=== PATIENT | male | born 1960 | race Caucasian/White ===

== ENCOUNTER 2018-12-03 22:50 | Observation (INO) ==
[2018-12-03 23:16] LABS: Basophils # 0.1 10*3/uL (0.0-0.2); Eosinophils # 0.2 10*3/uL (0.0-0.87); Eosinophils % 2.4 % (0.00-10.9); Hematocrit 46.9 VOL% (42.0-52.0); Hemoglobin 16.4 GM/DL (14.0-18.0); Immature Granulocytes % 0.5 %; Immature Granulocytes Absolute 0.04 #; Lymphocytes # 2.4 10*3/uL (1.4-4.0); Lymphocytes % 28.8 % (21.2-54.2); Mean Corpuscular Volume 86.1 FL (87-102); Mean Platelet Volume 10.8 FL (9.6-12.0); Monocytes % 6.9 % (1.7-12.7); Neutrophils % 60.4 % (38.7-73.9); Platelet Count 250 T/CUMM (130-400); Red Blood Count 5.45 MC/CUMM (3.8-5.5); White Blood Count 8.4 T/CUMM (4-12)
[2018-12-04 00:07] LABS: Glucose 366 MG/DL (74-106)
[2018-12-04] MEDS ORDERED: ORPHENADRINE 60 MG/2 ML VIAL IV STA (00:33)
[2018-12-04] MEDS ORDERED: ASPIRIN 325 MG TABLET PO STA (00:33)
[2018-12-04] MEDS ORDERED: KETOROLAC 30 MG/1 ML VIAL IV STA (00:33)
[2018-12-04] MEDS ORDERED: ONDANSETRON 4 MG/2 ML VIAL IV STA (00:33)
[2018-12-04] MEDS ORDERED: NITROGLYCERIN 2% OINT 1 INCH/GM PACK TOP STA (00:50)
[2018-12-04] MEDS ORDERED: ONDANSETRON 4 MG/2 ML VIAL IV PRN (00:58)
[2018-12-04] MEDS ORDERED: DEXTROSE 50% 25 GM/50 ML VIAL IV PRN (00:58)
[2018-12-04] MEDS ORDERED: GLUCAGON 1 MG VIAL IM PRN (00:58)
[2018-12-04] MEDS ORDERED: ACETAMINOPHEN 500 MG TABLET PO PRN (00:58)
[2018-12-04 01:38] LABS: PT Patient Result > 200.0 SECS
[2018-12-04 01:39] LABS: INR > 20.0
[2018-12-04 01:48] LABS: Calcium 7.6 MG/DL (8.5-10.1)
[2018-12-04 01:50] LABS: Troponin I 0.625 NG/ML (0.00-0.045)
[2018-12-04 03:04] LABS: Apearance,Urine CLEAR (Clear); Bilirubin,Urine Negative (Negative); Blood, Urine Negative (Negative); Glucose,Urine (UA) >=500 mg/dL (Negative); Ketones,Urine Negative (Negative); Nitrite,Urine Negative (Negative); Protein,Urine Negative; RBC,Urine 3 /HPF (0-4); Urine Color Yellow (Yellow); Urine Specific Gravity 1.029 (1.001-1.035); Urine Urobilinogen < 2.0 EU/DL (0.2-1.0)
[2018-12-04 03:26] LABS: Barbiturates Screen,Urine Negative (Negative); Benzodiazepines Screen,Urine Negative (Negative); Cannabinoid Screen,Urine Negative (Negative); Opiate Screen,Urine Negative (Negative); Phencyclidine Screen,Urine Negative (Negative)
[2018-12-04] MEDS: NITROGLYCERIN 2% OINT 1 INCH/GM PACK TOP SCH ×3 (06:38→17:02)
[2018-12-04] MEDS: INSULIN REGULAR 100 UNIT/ML SUBCUT SCH ×4 (06:38→22:18)
[2018-12-04] MEDS ORDERED: metFORMIN 500 MG TABLET PO SCH (08:00)
[2018-12-04] MEDS: PANTOPRAZOLE 40 MG TABLET PO SCH (08:26)
[2018-12-04] MEDS: METOPROLOL TARTRATE 25 MG TABLET PO SCH ×2 (08:28→21:55)
[2018-12-04] MEDS ORDERED: traMADol 50 MG TABLET PO PRN (09:15)
[2018-12-04] MEDS ORDERED: ALUMINUM/MAGNES/SIMETH MAX STR 30 ML UDCUP PO PRN (09:18)
[2018-12-04 09:45] LABS: INR 0.9
[2018-12-04] MEDS: INSULIN GLARGINE 100 UNIT/ML SUBCUT SCH (10:05)
[2018-12-04 10:09] LABS: Alkaline Phosphatase 167 U/L (45-117); Calcium 7.1 MG/DL (8.5-10.1); Glucose 316 MG/DL (74-106); HDL Cholesterol 16 MG/DL (40-60); Risk Ratio 9.13; Triglycerides 1127 MG/DL (2-150); VLDL CHOLESTEROL 225.4 MG/DL
[2018-12-04 10:12] LABS: Troponin I 0.823 NG/ML (0.00-0.045)
[2018-12-04 10:24] LABS: Blood Urea Nitrogen 12 MG/DL (7-18)
[2018-12-04 10:25] LABS: Osmolality,Calculated 284.8 MOS/KG (273-304)
[2018-12-04 10:29] LABS: INR 0.9
[2018-12-04 10:30] LABS: Alanine Aminotransferase 73 U/L (16-61); Aspartate Amino Transferase 40 U/L (0-37)
[2018-12-04 10:36] LABS: PT Patient Result 10.3 SECS
[2018-12-04 10:37] LABS: PT Patient Result 10.3 SECS
[2018-12-04] MEDS: ALBUTEROL/IPRATROPIUM 3 ML NEB RESP TX SCH ×2 (13:17→19:18)
[2018-12-04] MEDS ORDERED: ENOXAPARIN 100 MG/ML SYRINGE SUBCUT ONE (18:13)
[2018-12-04] MEDS ORDERED: POTASSIUM CHLORIDE RIDER 10 MEQ in PREMIX 1 EACH IV PRN (18:20)
[2018-12-04] MEDS ORDERED: MAGNESIUM SULF RIDER 2 GM in PREMIX 1 EACH IV PRN (18:20)
[2018-12-04] MEDS: ATORVASTATIN 40 MG TABLET PO SCH (21:49)
[2018-12-05] MEDS: ALBUTEROL/IPRATROPIUM 3 ML NEB RESP TX SCH ×4 (01:08→19:41)
[2018-12-05] MEDS: NITROGLYCERIN 2% OINT 1 INCH/GM PACK TOP SCH ×5 (01:47→23:13)
[2018-12-05 03:39] LABS: Basophils # 0.1 10*3/uL (0.0-0.2); Eosinophils # 0.1 10*3/uL (0.0-0.87); Eosinophils % 1.6 % (0.00-10.9); Hematocrit 42.6 VOL% (42.0-52.0); Hemoglobin 14.2 GM/DL (14.0-18.0); Immature Granulocytes % 0.4 %; Immature Granulocytes Absolute 0.03 #; Lymphocytes # 1.7 10*3/uL (1.4-4.0); Lymphocytes % 23.3 % (21.2-54.2); Mean Corpuscular HGB Conc 33.3 GM/DL (32-36); Mean Corpuscular Volume 86.9 FL (87-102); Mean Platelet Volume 11.1 FL (9.6-12.0); Monocytes % 5.7 % (1.7-12.7); Platelet Count 185 T/CUMM (130-400); Red Cell Distribution Width 13.1 % (9.3-17.3); White Blood Count 7.4 T/CUMM (4-12)
[2018-12-05 03:44] LABS: INR 0.9; PT Patient Result 10.3 SECS
[2018-12-05 04:04] LABS: Blood Urea Nitrogen 18 MG/DL (7-18); Calcium 7.4 MG/DL (8.5-10.1); Glucose 348 MG/DL (74-106); Osmolality,Calculated 288.8 MOS/KG (273-304)
[2018-12-05 04:05] LABS: Troponin I 0.506 NG/ML (0.00-0.045)
[2018-12-05] MEDS ORDERED: diphenhydrAMINE CAP 25 MG CAPSULE PO ONE (06:30)
[2018-12-05] MEDS ORDERED: DIAZEPAM 5 MG TABLET PO ONE (06:30)
[2018-12-05] MEDS: METOPROLOL TARTRATE 25 MG TABLET PO SCH (08:27)
[2018-12-05] MEDS: ASPIRIN CHEW 81 MG TABLET PO SCH (08:27)
[2018-12-05] MEDS: PANTOPRAZOLE 40 MG TABLET PO SCH (08:27)
[2018-12-05] MEDS ORDERED: HYDROmorphone 2 MG/1 ML VIAL ONE (09:55)
[2018-12-05] MEDS ORDERED: MIDAZOLAM 2 MG/2 ML VIAL ONE (09:55)
[2018-12-05] MEDS ORDERED: VERAPAMIL 5 MG/2 ML VIAL ONE (09:56)
[2018-12-05] MEDS ORDERED: LIDOCAINE 1% 20 ML VIAL ONE (09:56)
[2018-12-05] MEDS ORDERED: NITROGLYCERIN DRIP 50 MG/250 ML BOTTLE IV ONE (09:56)
[2018-12-05] MEDS ORDERED: ENOXAPARIN 60 MG/0.6 ML SYRINGE ONE (10:16)
[2018-12-05] MEDS ORDERED: ENOXAPARIN 30 MG/0.3 ML SYRINGE ONE (10:24)
[2018-12-05] MEDS ORDERED: TIROFIBAN 5,000 MCG/100 ML PREMIX IV ONE (10:27)
[2018-12-05] MEDS: INSULIN REGULAR 100 UNIT/ML SUBCUT SCH ×4 (11:08→21:02)
[2018-12-05] MEDS ORDERED: TICAGRELOR 90 MG TABLET ONE (11:14)
[2018-12-05] MEDS ORDERED: ACETAMINOPHEN 325 MG TABLET PO PRN (11:18)
[2018-12-05] MEDS: INSULIN GLARGINE 100 UNIT/ML SUBCUT SCH (12:18)
[2018-12-05 13:38] LABS: Troponin I 0.956 NG/ML (0.00-0.045)
[2018-12-05] MEDS: TICAGRELOR 90 MG TABLET PO SCH (21:02)
[2018-12-05] MEDS: ATORVASTATIN 40 MG TABLET PO SCH (21:02)
[2018-12-05] MEDS: CARVEDILOL 3.125 MG TABLET PO SCH (21:02)
[2018-12-06] MEDS: ALBUTEROL/IPRATROPIUM 3 ML NEB RESP TX SCH ×3 (00:12→12:22)
[2018-12-06 05:12] LABS: Basophils # 0.1 10*3/uL (0.0-0.2); Basophils % 0.7 % (0.0-0.8); Eosinophils # 0.2 10*3/uL (0.0-0.87); Eosinophils % 1.7 % (0.00-10.9); Hematocrit 46.2 VOL% (42.0-52.0); Hemoglobin 15.1 GM/DL (14.0-18.0); Immature Granulocytes % 0.6 %; Immature Granulocytes Absolute 0.06 #; Lymphocytes # 1.7 10*3/uL (1.4-4.0); Lymphocytes % 17.3 % (21.2-54.2); Mean Corpuscular HGB Conc 32.7 GM/DL (32-36); Mean Corpuscular Volume 86.5 FL (87-102); Mean Platelet Volume 10.9 FL (9.6-12.0); Monocytes % 7.6 % (1.7-12.7); Neutrophils % 72.1 % (38.7-73.9); Platelet Count 211 T/CUMM (130-400); Red Blood Count 5.34 MC/CUMM (3.8-5.5); White Blood Count 9.9 T/CUMM (4-12)
[2018-12-06 05:13] LABS: Calcium 8.1 MG/DL (8.5-10.1); Osmolality,Calculated 277.7 MOS/KG (273-304)
[2018-12-06 05:20] LABS: PT Patient Result 10.6 SECS
[2018-12-06] MEDS: NITROGLYCERIN 2% OINT 1 INCH/GM PACK TOP SCH (05:22)
[2018-12-06 07:58] VITALS: BP 141/78
[2018-12-06] MEDS: INSULIN REGULAR 100 UNIT/ML SUBCUT SCH ×2 (08:24→12:19)
[2018-12-06] MEDS: ASPIRIN CHEW 81 MG TABLET PO SCH (08:40)
[2018-12-06] MEDS: TICAGRELOR 90 MG TABLET PO SCH (08:40)
[2018-12-06] MEDS: CARVEDILOL 3.125 MG TABLET PO SCH (08:41)
[2018-12-06] MEDS: INSULIN GLARGINE 100 UNIT/ML SUBCUT SCH (08:41)
[2018-12-06] MEDS: PANTOPRAZOLE 40 MG TABLET PO SCH (08:41)
== END 2018-12-06 13:20 | disposition home or self-care (01) ==
LOC: N.ED 22:50 → INTOOBSV 12-04 00:56 → N.EDINP 12-04 00:56 → N.TELEN 12-04 04:00
PROVIDERS: ADMIT Family Medicine; ATTEND Family Medicine
PROC: CLCCHCL (ICD-10-PCS; 2018-12-05 11:15)